=== PATIENT | male | born 1975 | race Caucasian/White ===

== ENCOUNTER 2017-05-05 00:21 | Emergency (ER) | payer SELFPAY ==
[2017-05-05] MEDS ORDERED: PROVENTIL 2.5 MG/3 ML NEB IH ONE ×2 (00:35→00:43)
--- NOTE | 2017-05-05 00:42 | ERPHSYRPT ---
- History of Present Illness Time Seen by Provider: 05/05/17 00:24 Source: patient Exam Limitations: no limitations Physician History: FOR THE PAST 4 DAYS PT HAS HAD A WORSENING CHRONIC NON-PRODUCTIVE COUGH; FOR THE PAST 3 DAYS SUBJECTIVE FEVER, NASAL CONGESTION, HEADACHE, DIAPHORESIS AND CHILLS. PT ALSO C/O A RASH ON THE BACK FOR THE PAST 5 YEARS. Allergies/Adverse Reactions: hydrocodone Allergy (Verified 05/05/17 00:37) Swelling cephalexin [From Keflex] Adverse Reaction (Verified 05/05/17 00:37) Nausea and Vomiting Hx Tetanus, Diphtheria Vaccination/Date Given: Yes Hx Influenza Vaccination/Date Given: No Hx Pneumococcal Vaccination/Date Given: No - Review of Systems Constitutional: Fever, Chills Ears, Nose, & Throat: Nose Congestion Respiratory: Cough Skin: Rash Neurological: Headache Endocrine: Excessive Sweating All Other Systems: Reviewed and Negative - Past Medical History Pertinent Past Medical History: No - Past Surgical History Past Surgical History: No Musculoskeletal: Orthopedic Surgery - Social History Smoking Status: Current every day smoker How long have you smoked: 25 Exposure to second hand smoke: Yes Drug Use: none Patient Lives Alone: No - Nursing Vital Signs Nursing Vital Signs: Initial Vital Signs Temperature 99.2 F 05/05/17 00:24 Pulse Rate 81 05/05/17 00:24 Respiratory Rate 20 05/05/17 00:24 Blood Pressure 131/78 05/05/17 00:24 O2 Sat by Pulse Oximetry 94 L 05/05/17 00:24 Pain Scale Pain Intensity 0 - Physical Exam General Appearance: alert Eye Exam: PERRL/EOMI Ears, Nose, Throat Exam: moist mucous membranes, pharyngeal erythema Neck Exam: normal inspection Respiratory Exam: wheezing (MILD EXPIRATORY WHEEZING) Cardiovascular Exam: normal heart sounds Gastrointestinal/Abdomen Exam: soft, normal bowel sounds Back Exam: normal range of motion Extremity Exam: normal inspection, No pedal edema Neurologic Exam: alert, cooperative Skin Exam: rash (SCATTERED ERYTHEMATOUS MACULOPAPULAR RASH SOME WITH CENTRAL CLEARING WITH RAISED BORDERS OVER MID & LOWER BACK.) - Course Nursing assessment & vital signs reviewed: Yes - Radiology Exams Chest X-ray Interpretation: Interpreted by me, No Pneumonia Ordered Tests: Active Orders 24 hr Category Date Time Status CHEST 2 VIEWS (PA AND LAT) Stat Exams 05/05/17 00:36 Ordered Respiratory Nebulizer STAT RT 05/05/17 00:36 Completed Medication Summary Discontinued Medications Generic Name Dose Route Start Last Admin Trade Name José Miguel PRN Reason Stop Dose Admin Albuterol Sulfate 2.5 mg 05/05/17 00:35 05/05/17 00:44 Proventil 2.5 Mg/3 Ml Neb IH 05/05/17 00:36 2.5 mg STAT ONE Administration Albuterol Sulfate Confirm 05/05/17 00:43 Proventil 2.5 Mg/3 Ml Neb Administered 05/05/17 00:44 Dose 2.5 mg IH .STK-MED ONE - Departure Time of Disposition: :09 Departure Disposition: Home Clinical Impression: BRONCHITIS, PHARYNGITIS, TINEA CORPORIS Condition: Stable Critical Care Time: No Referrals: BRUNILDA HILLMAN [Primary Care Provider] - Instructions: Bronchitis Additional Instructions: FOLLOW UP WITH PRIVATE DOCTOR TOMORROW. Prescriptions: Amox Tr/Potass Clav. 875 mg [Augmentin 875-125 Tablet] 875 mg PO BID #20 tablet Benzonatate [Tessalon Perle] 100 mg PO TID #30 capsule Clotrimazole/Betamet Diprop [Lotrisone Cream] 1 gm TP BID #1 tube
[2017-05-05] MEDS ORDERED: Augmentin 875-125 Tablet PO ONE (01:10)
[2017-05-05] MEDS ORDERED: Augmentin 875-125 Tablet ONE (01:13)
[2017-05-05] MEDS ORDERED: Tessalon Perles 100 MG PO PRN (01:15)
[2017-05-05] MEDS ORDERED: Tessalon Perles 100 MG PO ONE (01:32)
[2017-05-05 01:58] VITALS: BP 135/80; PULSE 76; O2SAT 96
--- NOTE | 2017-05-05 09:15 | XRAY ---
Indication: Cough, short of breath, and fever. Comparison: January 09, 2015. PA/lateral chest remains clear again with a few calcified granulomas. Heart is not enlarged. Bony thorax intact. Impression: Stable nonacute chest with chronic feature.
== END 2017-05-05 01:59 | disposition home or self-care (01) ==
LOC: ED 00:21
DX: J40 Bronchitis, not specified as acute or chronic (principal); J02.9 Acute pharyngitis, unspecified; B35.4 Tinea corporis
CPT/HCPCS: 36000; 71020; 94640; 99284; A9270-GY

== ENCOUNTER 2023-08-01 10:53 | Emergency (ER) | payer BC ==
[2023-08-01 11:03] VITALS: BP 161/91; PULSE 81; RESP 18; TEMP 98.4
[2023-08-01] MEDS ORDERED: TORAdol 30 mg Injection IM ONE (11:03)
[2023-08-01] MEDS ORDERED: Norflex 60 MG/2 ML IM ONE (11:04)
--- NOTE | 2023-08-01 11:08 | ERPHSYRPT ---
- History of Present Illness Source: patient Exam Limitations: no limitations Physician History: 48 years old male with no past medical history presented to the emergency room complaining of right shoulder pain since Wednesday, 3 days from today. The patient states that he was holding an electric screwdriver with his left hand and when he leaned down while supporting on his right upper hand on the ground , he felt the pain in his right shoulder. It is very painful, rating it 8 out of 10 especially with movements. He took hydrocodone without much relief. He is denying any other injuries. Allergies/Adverse Reactions: hydrocodone Allergy (Verified 08/01/23 10:59) Swelling pt took one on 07/31/23 and did fine cephalexin [From Keflex] Adverse Reaction (Verified 05/05/17 00:37) Nausea and Vomiting Hx Tetanus, Diphtheria Vaccination/Date Given: Yes Hx Influenza Vaccination/Date Given: No Hx Pneumococcal Vaccination/Date Given: No - Review of Systems Constitutional: No Fever, No Chills Eyes: No Symptoms Ears, Nose, & Throat: No Symptoms Respiratory: No Cough, No Dyspnea Cardiac: No Chest Pain, No Edema, No Syncope Abdominal/Gastrointestinal: No Abdominal Pain, No Nausea, No Vomiting, No Diarrhea Genitourinary Symptoms: No Dysuria Musculoskeletal: Other (Right shoulder pain for 3 days), No Back Pain, No Neck Pain Skin: No Rash Neurological: No Dizziness, No Focal Weakness, No Sensory Changes Psychological: No Symptoms Endocrine: No Symptoms All Other Systems: Reviewed and Negative - Past Medical History Pertinent Past Medical History: No - Past Surgical History Past Surgical History: Yes Musculoskeletal: Orthopedic Surgery Other Surgical History: finger - Social History Smoking Status: Current every day smoker How long have you smoked: 25 Exposure to second hand smoke: Yes Drug Use: none Patient Lives Alone: No - Nursing Vital Signs Nursing Vital Signs: Initial Vital Signs Temperature 98.4 F 08/01/23 11:02 Pulse Rate 81 08/01/23 11:02 Respiratory Rate 18 08/01/23 11:02 Blood Pressure 161/91 08/01/23 11:02 Pain Scale Pain Intensity 8 - Physical Exam General Appearance: no apparent distress, alert Eyes, Ears, Nose, Throat Exam: moist mucous membranes Neck Exam: non-tender, supple Cardiovascular/Respiratory Exam: chest non-tender, normal breath sounds, regular rate/rhythm, no respiratory distress Abdominal Exam: non-tender, No guarding Back Exam: normal inspection, No vertebral tenderness Shoulder Exam: normal inspection, no evidence of injury, limited ROM, pain (Patient has tenderness over the right AC joint, supraspinatus muscle.), soft tissue tenderness, No deformity, No swelling Elbow/Forearm Exam: normal inspection, non-tender Wrist Exam: normal inspection, non-tender, normal ROM Hand Exam: normal inspection, non-tender, normal ROM Neuro/Tendon Exam: normal sensation, normal motor functions Mental Status Exam: alert, oriented x 3, cooperative Skin Exam: normal color, warm, dry - Course Nursing assessment & vital signs reviewed: Yes - Radiology Exams Shoulder X-ray Interpretation: Interpreted by me, Reviewed by me, Negative Ordered Tests: Active Orders 24 hr Category Date Time Status Sling Application STAT Care 08/01/23 12:09 Completed SHOULDER Stat Exams 08/01/23 11:18 Completed Medication Summary Discontinued Medications Generic Name Dose Route Start Last Admin Trade Name Freq PRN Reason Stop Dose Admin Ketorolac Tromethamine 60 mg 08/01/23 11:03 08/01/23 11:15 Ketorolac Tromethamine 30 Mg/Ml Inj IM 08/01/23 11:04 60 mg STAT ONE Administration Ketorolac Tromethamine Confirm 08/01/23 11:09 Ketorolac Tromethamine 30 Mg/Ml Inj Administered 08/01/23 11:10 Dose 60 mg .ROUTE .STK-MED ONE Orphenadrine Citrate 60 mg 08/01/23 11:04 08/01/23 11:15 Orphenadrine Citrate 60 Mg/2 Ml Vial IM 08/01/23 11:05 60 mg STAT ONE Administration Orphenadrine Citrate Confirm 08/01/23 11:09 Orphenadrine Citrate 60 Mg/2 Ml Vial Administered 08/01/23 11:10 Dose 60 mg .ROUTE .STK-MED ONE - Progress Progress: improved Progress Note: 08/01/23 11:13 48 years old male presenting to to the emergency room complaining of right shoulder pain since last Wednesday, 3 days from today. The patient injured his right shoulder while leaning downward supporting his right upper extremity. He has tenderness over his right AC joint, right supraspinatus. Decreased range of motion of the right shoulder secondary to pain. Differential diagnosis: Shoulder dislocation Shoulder subluxation Rotator cuff injury Shoulder sprain Shoulder fracture. Emergency room course and medical decision making. For the pain the patient be given Toradol 60 mg IM, Norflex 60 IM X-ray of the right shoulder. 08/01/23 12:04 The patient is feeling better stating that his pain is down from 8 out of 10 to 4 out of 10. X-ray of the right shoulder is negative for any fracture or dislocation. The patient will be discharged home on naproxen 500 mg twice a day Norflex 100 milligrams twice a day. Sling to the right shoulder He has hydrocodone tablets that he can take as needed. Follow-up with his family physician in 2 to 3 days. The patient may need an MRI on an outpatient basis. 08/01/23 12:12 - Departure Departure Disposition: Home Clinical Impression: Sprain of shoulder, right Condition: Stable Critical Care Time: No Referrals: BRUNILDA NORRIS [ACTIVE STAFF] - Follow up/PCP as directed Instructions: Shoulder Tendinopathy (DC), Shoulder Sprain (DC) Prescriptions: Naproxen 500 mg [Naprosyn 500 MG] 500 mg PO BID #30 tablet Orphenadrine Citrate 100 mg [Norflex 100 MG Tablet] 100 mg PO BID #14 tab
[2023-08-01] MEDS ORDERED: TORAdol 30 mg Injection ONE (11:09)
[2023-08-01] MEDS ORDERED: Norflex 60 MG/2 ML ONE (11:09)
--- NOTE | 2023-08-01 21:11 | XRAY ---
Indication: Pain. Comparison: None 3 view right shoulder demonstrates mild AC degenerative changes, mild double curvature cervicothoracic scoliosis, and tiny right midlung calcified granuloma. No other bony, articular, or soft tissue abnormalities.
== END 2023-08-01 12:27 | disposition home or self-care (01) ==
LOC: ED 10:53
DX: S43.401A Unspecified sprain of right shoulder joint, initial encounter (principal); X50.0XXA Overexertion from strenuous movement or load, initial encounter; Y93.H3 Activity, building and construction; Z79.891 Long term (current) use of opiate analgesic; Z72.0 Tobacco use
CPT/HCPCS: 73030; 96372; 99283; J1885; J2360

== ENCOUNTER 2024-03-18 00:38 | Emergency (ER) | payer BC ==
--- NOTE | 2024-03-18 00:50 | ERPHSYRPT ---
- History of Present Illness Time Seen by Provider: 03/18/24 00:45 Historian: patient Exam Limitations: no limitations Physician History: This is a 49-year-old white male patient who presents to the emergency room with chest pain of the entire anterior chest that began approximately 20 to 30 minutes prior to arrival. Patient is a daily smoker of cigarettes. He denies shortness of breath. His chest feels as though he got hit by a truck Timing/Duration: today Activities at Onset: none Location: other (Neurolyse anterior chest) Chest Pain Radiation: no radiation Severity of Pain-Max: moderate Severity of Pain-Current: moderate Modifying Factors: Improves With: nothing Associated Symptoms: diaphoresis Prior Chest Pain/Cardiac Workup: no prior chest pain, no prior cardiac workup Nitro Today/Relief: no nitro taken today Aspirin Treatment Today: no aspirin today, 81 mg x 4 Allergies/Adverse Reactions: hydrocodone Allergy (Verified 03/18/24 00:39) Swelling pt took one on 07/31/23 and did fine cephalexin [From Keflex] Adverse Reaction (Verified 03/18/24 00:39) Nausea and Vomiting Home Medications: No Reportable Medications [No Reported Medications] 03/18/24 [History] Hx Tetanus, Diphtheria Vaccination/Date Given: Yes Hx Influenza Vaccination/Date Given: No Hx Pneumococcal Vaccination/Date Given: No Travel Risk - International Travel Have you traveled outside of the country in past 3 weeks: No - Emerging Infectious Disease Are you exhibiting symptoms associated with any current EIDs: No - Review of Systems Constitutional: No Symptoms Eyes: No Symptoms Ears, Nose, & Throat: No Symptoms Respiratory: No Symptoms Cardiac: Chest Pain Abdominal/Gastrointestinal: No Symptoms Genitourinary Symptoms: No Symptoms Musculoskeletal: No Symptoms Skin: No Symptoms Neurological: No Symptoms Psychological: No Symptoms Endocrine: No Symptoms Hematologic/Lymphatic: No Symptoms Immunological/Allergic: No Symptoms All Other Systems: Reviewed and Negative - Past Medical History Pertinent Past Medical History: No - Past Surgical History Past Surgical History: Yes Musculoskeletal: Orthopedic Surgery Other Surgical History: finger - Social History Smoking Status: Current every day smoker How long have you smoked: 25 Exposure to second hand smoke: Yes Drug Use: none Patient Lives Alone: No - Physical Exam General Appearance: mild distress (Moderate to moderate), alert, anxiety Eye Exam: PERRL/EOMI, eyes nml inspection Ears, Nose, Throat Exam: normal ENT inspection, moist mucous membranes Neck Exam: normal inspection, non-tender, supple, full range of motion Respiratory Exam: normal breath sounds, chest tenderness, lungs clear, airway intact, No respiratory distress Cardiovascular Exam: regular rate/rhythm, normal heart sounds, normal peripheral pulses Gastrointestinal/Abdomen Exam: soft, normal bowel sounds, No tenderness Rectal Exam: not done Back Exam: normal inspection, normal range of motion, No CVA tenderness, No vertebral tenderness Extremity Exam: normal inspection, normal range of motion, pelvis stable Neurologic Exam: alert, oriented x 3, cooperative, crm consultant II-XII nml as tested, nml cerebellar function, nml station & gait, sensation nml Skin Exam: diaphoresis Lymphatic Exam: No adenopathy SpO2 Interpretation: normal O2 Delivery: Room Air - Course Nursing assessment & vital signs reviewed: Yes EKG Interpreted by Me: RATE (59), Sinus Rhythm, NORMAL AXIS, NORMAL INTERVALS, NORMAL QRS, Other (STEMI inferior leads II 3 and aVF) Ordered Tests: Active Orders 24 hr Category Date Time Status Front End Specialist STAT Care 03/18/24 00:47 Active EKG-ER Only STAT Care 03/18/24 00:46 Active IV Insertion STAT Care 03/18/24 00:46 Active Pulse Oximetry (ED) STAT Care 03/18/24 00:46 Active CBC W DIFF Stat Lab 03/18/24 00:46 Ordered CMP Stat Lab 03/18/24 00:46 Ordered PROTIME WITH INR Stat Lab 03/18/24 00:46 Ordered PTT Stat Lab 03/18/24 00:46 Ordered TROPONIN Q4H Lab 03/18/24 01:00 Ordered TROPONIN Q4H Lab 03/18/24 05:00 Ordered TROPONIN Q4H Lab 03/18/24 09:00 Ordered Medication Summary Generic Name Dose Route Start Last Admin Trade Name Freq PRN Reason Stop Dose Admin Sodium Chloride 1,000 mls @ 100 mls/hr 03/18/24 01:00 Sodium Chloride 0.9% 1000 Ml IV 04/17/24 00:59 .Q10H CHRISTIANO Nitroglycerin/Dextrose 250 mls @ 1.5 mls/hr 03/18/24 00:46 Ntg 0.2mg/Ml In D5w Glass IV 04/17/24 00:45 .Q24H PRN CHEST PAIN Protocol 5 MCG/MIN Discontinued Medications Generic Name Dose Route Start Last Admin Trade Name José Miguel PRN Reason Stop Dose Admin Aspirin 324 mg 03/18/24 00:46 Aspirin 81 Mg Tab.Chew PO 03/18/24 00:47 STAT ONE Heparin Sodium (Beef Lung) 5,000 unit 03/18/24 00:48 Heparin 5000 Units/0.5 Ml 5,000 Unit/0.5 Ml Syr IV 03/18/24 00:49 STAT STA Ondansetron HCl 4 mg 03/18/24 00:49 Ondansetron Hcl 4 Mg/2 Ml Vial IV 03/18/24 00:50 STAT ONE - Progress Progress: re-examined, unchanged Air Movement: good Progress Note: 03/18/24 01:02 My medical decision making and the assignment of high complexity to this patient's medical issue today is based on review of the patient's past medical history, review patient medication list, review patient drug allergy list, review of the patient's history of present illness and physical findings on examination. The workup in this patient includes 325 mg orally of baby aspirin, twelve-lead EKG, troponin level, CBC, CMP, magnesium level, 5000 units intravenous heparin bolus, nitroglycerin drip, 4 mg of intravenous Zofran and 2 mg of intravenous morphine. The patient states that hydrocodone does not give him a rash but he breaks out in a sweat and has nausea. Blood Culture(s) Obtained: No Antibiotics given: No Counseled pt/family regarding: lab results, diagnosis Medical Desision Making - Independent Historian Additional History obtained from: Spouse - Diagnostic Testing Diagnostic test were ordered, analyzed, and reviewed by me: Yes - Risk of complications The pt has a high risk of morbidity or mortality based on: Decision regarding hospitilization or escalation of hosp level of care - Departure Departure Disposition: Transfer Clinical Impression: STEMI (ST elevation myocardial infarction) Condition: Serious Critical Care Time: Yes Critical Care Time(excluding separately billable procedures): Critical 30-74 mins (30)
[2024-03-18 00:55] VITALS: TEMP 97.8
[2024-03-18] MEDS ORDERED: HEPARIN 5000 UNITS/0.5 ML (HIGH RISK MED) ONE (00:57)
[2024-03-18] MEDS ORDERED: Zofran 4 MG/2 ML VIAL ONE (00:57)
[2024-03-18] MEDS ORDERED: BABY ASPIRIN 81 MG CHEW ONE (00:57)
[2024-03-18] MEDS ORDERED: Sodium Chloride 0.9% 1000 ML 1,000 ML ONE (00:57)
[2024-03-18] MEDS ORDERED: Ntg 0.2MG/Ml in D5W GLASS*** 250 ML IV ONE (00:58)
[2024-03-18] MEDS: BABY ASPIRIN 81 MG CHEW PO ONE (00:58)
[2024-03-18] MEDS: Zofran 4 MG/2 ML VIAL IV ONE (00:59)
[2024-03-18] MEDS: Sodium Chloride 0.9% 1000 ML 1,000 ML IV SCH (00:59)
[2024-03-18] MEDS: Ntg 0.2MG/Ml in D5W GLASS*** 250 ML IV PRN (00:59)
[2024-03-18] MEDS: HEPARIN 5000 UNITS/0.5 ML (HIGH RISK MED) IV STA (00:59)
[2024-03-18 01:04] LABS: Absolute Neutrophil Ct (ANC) 6.06 x10^3/uL (1.78-5.38); BASOPHIL % 0.7 % (0.2-1.2); Basophil (Absolute #) 0.08 x10^3/uL (0.01-0.08); Eosinophil % 1.8 % (0.8-7.0); Eosinophil (Absolute #) 0.21 x10^3/uL (0.04-0.54); Hematocrit 43.2 % (40.1-51.0); Hemoglobin 14.7 g/dL (13.7-17.5); IMMATURE GRAN # 0.05 x10^3u/L (0.001-0.031); IMMATURE GRAN % 0.4 % (0.001-0.429); Lymphocyte (Absolute #) 4.37 x10^3/uL (1.32-3.57); Mean Cell Volume 88.9 fL (79.0-92.2); Mean Corpuscular Hemoglobin 30.2 pg (25.7-32.2); Mean Platelet Volume 9.9 fL (9.4-12.4); Monocyte (Absolute #) 0.73 x10^3/uL (0.30-0.82); Monocytes % 6.3 % (5.3-12.2); Neutrophil % 52.8 % (34.0-67.9); Platelet Count 269 x10^3/uL (163-337); Red Blood Count 4.86 x10^6/uL (4.63-6.08); Red Cell Distribution Width 12.5 % (11.6-14.4); White Blood Count 11.5 x10^3/uL (4.23-9.07)
[2024-03-18] MEDS ORDERED: MORPHINE SULFATE 2 MG INJ ONE (01:11)
[2024-03-18] MEDS: MORPHINE SULFATE 2 MG INJ IV ONE (01:12)
[2024-03-18 01:15] VITALS: RESP 15
[2024-03-18 01:16] LABS: ALBUMIN 4.8 g/dL (3.5-5.0); ANION GAP 13.5 MEQ/L (5-15); BILIRUBIN,TOTAL 0.4 mg/dL (0.2-1.3); Calcium 10.1 mg/dL (8.4-10.2); Creatinine 1 1.38 mg/dL (0.66-1.25); EST GLOMERULAR FILTRATION RATE 61.9 ML/MIN; MAGNESIUM 2.2 mg/dL (1.6-2.3); Potassium 3.5 mmol/L (3.5-5.1); Total Protein 8.2 g/dL (6.3-8.2)
[2024-03-18 01:17] LABS: INR 0.89 (0.8-3.0); PROTIME 9.8 SECONDS (9.4-12.5); PTT 25.1 SECONDS (25.1-36.5)
[2024-03-18 01:31] VITALS: BP 161/106; PULSE 68; O2SAT 99
== END 2024-03-18 01:21 | disposition short-term general hospital (02) ==
LOC: ED 00:38
DX: I21.3 ST elevation (STEMI) myocardial infarction of unspecified site (principal); R07.9 Chest pain, unspecified; Z72.0 Tobacco use
CPT/HCPCS: 36000; 36415; 80053; 83735; 84484; 85025; 85610; 85730; 93005; 93041; 94760; 96374; 96375; 99285; 99291; J1644; J2270; J2405; A9270-GY

== ENCOUNTER 2024-08-03 19:12 | Emergency (ER) | payer BC ==
--- NOTE | 2024-08-03 19:27 | ERPHSYRPT ---
- History of Present Illness Time Seen by Provider: 08/03/24 19:27 Source: patient Exam Limitations: no limitations Physician History: This is an overweight 49-year-old white male patient who was getting ready for duck hunting and while he was walking down decline he got to the end and his foot slipped and he fell onto his left shoulder. This occurred this morning. Patient arrives accompanied by his spouse. He has left shoulder pain with decreased range of motion. He has no other complaints of injury. He wants to avoid codeine-based medication. Occurred: this morning Method of Injury: fell Quality: aching Severity of Pain-Max: moderate Severity of Pain-Current: moderate Extremities Pain Location: shoulder: left Modifying Factors: Improves With: movement (Worsens) Associated Symptoms: none Allergies/Adverse Reactions: hydrocodone Allergy (Verified 08/03/24 19:20) Swelling pt took one on 07/31/23 and did fine cephalexin [From Keflex] Adverse Reaction (Verified 08/03/24 19:20) Nausea and Vomiting Home Medications: Aspirin [Adult Low Dose Aspirin EC] 81 mg PO DAILY 08/03/24 [History] Atorvastatin Calcium 80 mg PO HS 08/03/24 [History] Ezetimibe [Zetia] 10 mg PO HS 08/03/24 [History] Famotidine [Pepcid] 20 mg PO BID 08/03/24 [History] Ranolazine [Ranolazine ER] 500 mg PO BID 08/03/24 [History] Ticagrelor [Brilinta] 90 mg PO BID 08/03/24 [History] lisinopriL [Zestril] 2.5 mg PO DAILY 08/03/24 [History] Hx Tetanus, Diphtheria Vaccination/Date Given: Yes Hx Influenza Vaccination/Date Given: No Hx Pneumococcal Vaccination/Date Given: No Travel Risk - International Travel Have you traveled outside of the country in past 3 weeks: No - Emerging Infectious Disease Are you exhibiting symptoms associated with any current EIDs: No - Review of Systems Constitutional: No Symptoms Eyes: No Symptoms Ears, Nose, & Throat: No Symptoms Respiratory: No Symptoms Cardiac: No Symptoms Abdominal/Gastrointestinal: No Symptoms Genitourinary Symptoms: No Symptoms Musculoskeletal: Injury (Left shoulder), Other (Left shoulder) Skin: No Symptoms Neurological: No Symptoms Psychological: No Symptoms Endocrine: No Symptoms Hematologic/Lymphatic: No Symptoms Immunological/Allergic: No Symptoms All Other Systems: Reviewed and Negative - Past Medical History Pertinent Past Medical History: No - Past Surgical History Past Surgical History: Yes Musculoskeletal: Orthopedic Surgery Other Surgical History: finger - Social History Smoking Status: Current every day smoker How long have you smoked: 25 Exposure to second hand smoke: Yes Drug Use: none Patient Lives Alone: No - Social Determinants of Health Will the patient participate in the screening: Declined to provide - Nursing Vital Signs Nursing Vital Signs: Initial Vital Signs Temperature 98.1 F 08/03/24 19:20 Pulse Rate 82 08/03/24 19:20 Respiratory Rate 20 08/03/24 19:20 Blood Pressure 143/79 08/03/24 19:20 O2 Sat by Pulse Oximetry 98 08/03/24 19:20 Pain Scale Pain Intensity 9 - Physical Exam General Appearance: no apparent distress, alert Eyes, Ears, Nose, Throat Exam: normal ENT inspection, moist mucous membranes Neck Exam: normal inspection, non-tender, supple, full range of motion Cardiovascular/Respiratory Exam: chest non-tender, no respiratory distress Abdominal Exam: non-tender Back Exam: normal inspection, normal range of motion, No CVA tenderness, No vertebral tenderness Shoulder Exam: normal inspection (Left shoulder), no evidence of injury, soft tissue tenderness (Left shoulder), No deformity, No swelling (Left shoulder) Elbow/Forearm Exam: normal inspection, non-tender, no evidence of injury, normal ROM Wrist Exam: normal inspection, non-tender, no evidence of injury, normal ROM Hand Exam: normal inspection, non-tender, no evidence of injury, normal ROM Neuro/Tendon Exam: normal sensation, normal motor functions, normal tendon functions, no evidence tendon injury Mental Status Exam: alert, oriented x 3, cooperative Skin Exam: normal color, warm, dry SpO2 Interpretation: normal O2 Delivery: Room Air - Course Nursing assessment & vital signs reviewed: Yes Ordered Tests: Active Orders 24 hr Category Date Time Status Sling Application STAT Care 08/03/24 20:26 Ordered SHOULDER Stat Exams 08/03/24 19:37 Taken Medication Summary Discontinued Medications Generic Name Dose Route Start Last Admin Trade Name Freq PRN Reason Stop Dose Admin Naproxen 500 mg 08/03/24 20:27 Naproxen 500 Mg Tablet PO 08/03/24 20:28 STAT ONE Orphenadrine Citrate 100 mg 08/03/24 20:27 Orphenadrine Citrate 100 Mg Er Tab PO 08/03/24 20:28 STAT ONE - Progress Progress: improved, pain not gone completely Progress Note: 08/03/24 20:31 My medical decision making and the assignment of low complexity to this patient's medical issue today is based on review of the patient's past medical history, review of the patient's medication list, reviewed patient drug allergy list, history present of some physical findings on examination. The workup in this patient includes x-ray of the patient's left shoulder. Differential diagnosis includes but is not limited to fracture/dislocation left shoulder, rotator cuff injury 08/03/24 20:32 I interpreted the patient's preliminary left shoulder x-ray report. I do not se e an acute fracture or dislocation. Counseled pt/family regarding: diagnosis, need for follow-up, rad results Medical Desision Making - Independent Historian Additional History obtained from: Spouse - Diagnostic Testing Diagnostic test were ordered, analyzed, and reviewed by me: Yes Radiological Interpretation: Interpreted by me - Risk of complications The pt has a mod risk of morbidity or mortality based on: Need for prescription drug management - Departure Departure Disposition: Home Clinical Impression: Injury of left shoulder Condition: Stable Critical Care Time: No Referrals: DOCTOR,NO FAMILY [NON-STAFF PHY W/O PRIVILEGES] - Follow up/PCP as directed Additional Instructions: Ice pack to tender area 3-4 times a day for the next 3 to 4 days. Take your medication as prescribed. May add Tylenol 650 mg orally 4 times a day while awake. Follow-up with your primary care provider, by phone, on 08/07/2024 or the [facility] orthopedic clinic on 08/07/2024, at 8 or 9 AM for further evaluation and management. The orthopedic clinic is a walk-in clinic and you do not need to have an appointment to be seen. Prescriptions: Orphenadrine Citrate 100 mg [Norflex 100 MG Tablet] 100 mg PO BID #10 tab
[2024-08-03 19:30] VITALS: RESP 20; TEMP 98.1
[2024-08-03 20:18] VITALS: BP 135/82; PULSE 77; O2SAT 99
[2024-08-03] MEDS ORDERED: Norflex 100 MG Tablet PO ONE (20:30)
[2024-08-03] MEDS: Naprosyn 500 MG PO ONE (20:34)
[2024-08-03] MEDS: Norflex 100 MG Tablet PO ONE (20:34)
--- NOTE | 2024-08-04 13:21 | XRAY ---
Indication: Pain following fall. 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 No other bony, articular, or soft tissue abnormalities.
== END 2024-08-03 20:43 | disposition home or self-care (01) ==
LOC: ED 19:12
DX: S49.92XA Unspecified injury of left shoulder and upper arm, initial encounter (principal); W01.0XXA Fall on same level from slipping, tripping and stumbling without subsequent striking against object, initial encounter; Z79.02 Long term (current) use of antithrombotics/antiplatelets; Z79.899 Other long term (current) drug therapy; Z72.0 Tobacco use
CPT/HCPCS: 73030; 99283; A9270-GY

== ENCOUNTER 2025-04-02 19:50 | Observation (INO) | payer BC ==
--- NOTE | 2025-04-02 20:03 | ERPHSYRPT ---
- History of Present Illness Time Seen by Provider: 04/02/25 19:59 Exam Limitations: no limitations Physician History: 50-year-old male history of [place] CABG x 4 vessels October 31 presents to our ED for evaluation of chest pain for 1 week. No associated nausea vomiting or diaphoresis. Patient followed up with his entry level recruiter Dr. Mcginnis. Outpatient labs were completed. Patient reports the labs were normal no further follow-up. Please patient reports that his chest pain is gotten progressively worse. Chest pain radiating to his back. Patient took 325 mg of aspirin and 75 mg of Plavix today. No nitroglycerin. at bedside. They voiced no other complaints or concerns at this time. Portions of this note were created with voice recognition technology. There may be grammatical, spelling, punctuation or sound alike errors Timing/Duration: week(s) (1 week) Activities at Onset: none Quality: aching Location: substernal Chest Pain Radiation: back Severity of Pain-Max: moderate Severity of Pain-Current: mild Modifying Factors: Improves With: nothing Associated Symptoms: denies symptoms Nitro Today/Relief: no nitro taken today Aspirin Treatment Today: 325 mg x 1 Allergies/Adverse Reactions: hydrocodone Allergy (Verified 08/03/24 19:20) Swelling pt took one on 07/31/23 and did fine cephalexin [From Keflex] Adverse Reaction (Verified 08/03/24 19:20) Nausea and Vomiting doxycycline Adverse Reaction (Verified 04/02/25 20:11) Muscle Aches Home Medications: Aspirin [Adult Low Dose Aspirin EC] 325 mg PO DAILY 08/03/24 [History] Atorvastatin Calcium 80 mg PO HS 08/03/24 [History] Famotidine [Pepcid] 20 mg PO BID 08/03/24 [History] Ticagrelor [Brilinta] 90 mg PO BID 08/03/24 [History] Clopidogrel Bisulfate [Clopidogrel] 75 mg PO DAILY 04/02/25 [History] Hx Tetanus, Diphtheria Vaccination/Date Given: Yes Hx Influenza Vaccination/Date Given: No Hx Pneumococcal Vaccination/Date Given: No Travel Risk - Emerging Infectious Disease Are you exhibiting symptoms associated with any current EIDs: No - Review of Systems Constitutional: No Symptoms, No Fever, No Chills Eyes: No Symptoms Ears, Nose, & Throat: No Symptoms Respiratory: No Symptoms, No Cough, No Dyspnea Cardiac: No Symptoms, No Chest Pain, No Edema, No Syncope Abdominal/Gastrointestinal: No Symptoms, No Abdominal Pain, No Nausea, No Vomiting, No Diarrhea Genitourinary Symptoms: No Symptoms, No Dysuria Musculoskeletal: No Symptoms, No Back Pain, No Neck Pain Skin: No Symptoms, No Rash Neurological: No Symptoms, No Dizziness, No Focal Weakness, No Sensory Changes Psychological: No Symptoms Endocrine: No Symptoms Hematologic/Lymphatic: No Symptoms Immunological/Allergic: No Symptoms All Other Systems: Reviewed and Negative - Past Medical History Pertinent Past Medical History: No - Past Surgical History Past Surgical History: Yes Musculoskeletal: Orthopedic Surgery Other Surgical History: finger - Social History Smoking Status: Current every day smoker How long have you smoked: 25 Exposure to second hand smoke: Yes Drug Use: none Patient Lives Alone: No - Social Determinants of Health Will the patient participate in the screening: Declined to provide - Nursing Vital Signs Nursing Vital Signs: Initial Vital Signs Pulse Rate 88 04/02/25 20:00 Respiratory Rate 24 04/02/25 20:00 Blood Pressure 133/81 04/02/25 20:00 O2 Sat by Pulse Oximetry 97 04/02/25 20:00 Pain Scale Pain Intensity 10 - Physical Exam General Appearance: no apparent distress, alert Eye Exam: PERRL/EOMI, eyes nml inspection Ears, Nose, Throat Exam: normal ENT inspection, moist mucous membranes Neck Exam: normal inspection, non-tender, supple, full range of motion Respiratory Exam: normal breath sounds, lungs clear, airway intact, No respiratory distress Cardiovascular Exam: regular rate/rhythm, normal heart sounds Gastrointestinal/Abdomen Exam: soft, No tenderness, No mass Back Exam: normal inspection, No CVA tenderness, No vertebral tenderness Extremity Exam: normal inspection, normal range of motion Neurologic Exam: alert, oriented x 3, cooperative, normal mood/affect, sensation nml, No motor deficits Skin Exam: normal color, warm, dry Lymphatic Exam: No adenopathy SpO2 Interpretation: normal O2 Delivery: Room Air - Course Nursing assessment & vital signs reviewed: Yes EKG Interpreted by Me: RATE (90), Sinus Rhythm, NORMAL AXIS, NORMAL INTERVALS, NORMAL QRS - Radiology Exams Chest X-ray Interpretation: Interpreted by me (Evidence of CABG. No acute findings.) - CT Exams Chest CT Interpretation: Tele-radiologist Report (No PE. Borderline cardiomegaly, pericardial effusion. Evidence of CABG no acute findings) Ordered Tests: Active Orders 24 hr Category Date Time Status Civil Engineering Intern STAT Care 04/02/25 19:58 Active EKG-ER Only STAT Care 04/02/25 19:57 Active IV Insertion STAT Care 04/02/25 19:57 Active Pulse Oximetry (ED) STAT Care 04/02/25 19:57 Active CHEST 1 VIEW (PORTABLE) Stat Exams 04/02/25 20:46 Taken CHEST WITH CONTRAST [CT] Stat Exams 04/02/25 21:27 Taken CBC W DIFF Stat Lab 04/02/25 20:00 Completed CMP Stat Lab 04/02/25 20:00 Completed D-DIMER QUANTITATIVE Stat Lab 04/02/25 20:00 Completed NT PRO BNPII Stat Lab 04/02/25 20:00 Completed TROPONIN Q4H Lab 04/02/25 20:00 Completed TROPONIN Q4H Lab 04/03/25 00:00 Ordered TROPONIN Q4H Lab 04/03/25 04:00 Ordered TROPONIN Stat Lab 04/02/25 22:00 Completed Transfer Order Routine Transfer 04/03/25 Ordered Medication Summary Discontinued Medications Generic Name Dose Route Start Last Admin Trade Name Freq PRN Reason Stop Dose Admin Nitroglycerin 1 gm 04/02/25 20:03 04/02/25 20:15 Nitroglycerin 1 Gm Packet TOP 04/02/25 20:04 1 gm STAT ONE Administration Nitroglycerin Confirm 04/02/25 20:15 Nitroglycerin 1 Gm Packet Administered 04/02/25 20:16 Dose 1 gm .ROUTE .STK-MED ONE Lab/Rad Data: Laboratory Result Diagrams 04/02/25 20:00 04/02/25 20:00 Laboratory Results 04/02/25 04/02/25 04/02/25 Range/Units 22:00 20:00 20:00 WBC (4.23-9.07) x10^3/uL RBC (4.63-6.08) x10^6/uL Hgb (13.7-17.5) g/dL Hct (40.1-51.0) % MCV (79.0-92.2) fL MCH (25.7-32.2) pg MCHC (32.3-36.5) g/dL RDW (11.6-14.4) % Plt Count (163-337) x10^3/uL MPV (9.4-12.4) fL Gran % (34.0-67.9) % Immature Gran % (Auto) (0.001-0.429) % Nucleat RBC Rel Count (0.00-0.2) % Eos # (Auto) (0.04-0.54) x10^3/uL Immature Gran # (Auto) (0.001-0.031) x10^3u/L Absolute Lymphs (auto) (1.32-3.57) x10^3/uL Absolute Monos (auto) (0.30-0.82) x10^3/uL Absolute Nucleated RBC (0.00-0.012) x10^3u/L Lymphocytes % (21.8-53.1) % Monocytes % (5.3-12.2) % Eosinophils % (0.8-7.0) % Basophils % (0.2-1.2) % Absolute Granulocytes (1.78-5.38) x10^3/uL Basophils # (0.01-0.08) x10^3/uL D-Dimer 1.08 H* (0.0-0.50) mg/L Sodium (135-145) mmol/L Potassium (3.5-5.1) mmol/L Chloride (98-107) mmol/L Carbon Dioxide (22-30) mmol/L Anion Gap (5-15) MEQ/L BUN (9-20) mg/dL Creatinine (0.66-1.25) mg/dL Estimated GFR ML/MIN Glucose (74-106) mg/dL Calcium (8.4-10.2) mg/dL Total Bilirubin (0.2-1.3) mg/dL AST (17-59) U/L ALT (0-50) U/L Alkaline Phosphatase (38-126) U/L Troponin I < 0.012 < 0.012 (0.000-0.033) ng/mL NT-Pro-B Natriuret Pep 216 (<300) pg/mL Serum Total Protein (6.3-8.2) g/dL Albumin (3.5-5.0) g/dL 04/02/25 04/02/25 Range/Units 20:00 20:00 WBC 10.8 H (4.23-9.07) x10^3/uL RBC 4.57 L (4.63-6.08) x10^6/uL Hgb 13.8 (13.7-17.5) g/dL Hct 40.7 (40.1-51.0) % MCV 89.1 (79.0-92.2) fL MCH 30.2 (25.7-32.2) pg MCHC 33.9 (32.3-36.5) g/dL RDW 14.0 (11.6-14.4) % Plt Count 244 (163-337) x10^3/uL MPV 9.7 (9.4-12.4) fL Gran % 69.0 H (34.0-67.9) % Immature Gran % (Auto) 0.2 (0.001-0.429) % Nucleat RBC Rel Count 0.0 (0.00-0.2) % Eos # (Auto) 0.11 (0.04-0.54) x10^3/uL Immature Gran # (Auto) 0.02 (0.001-0.031) x10^3u/L Absolute Lymphs (auto) 2.46 (1.32-3.57) x10^3/uL Absolute Monos (auto) 0.70 (0.30-0.82) x10^3/uL Absolute Nucleated RBC 0.00 (0.00-0.012) x10^3u/L Lymphocytes % 22.8 (21.8-53.1) % Monocytes % 6.5 (5.3-12.2) % Eosinophils % 1.0 (0.8-7.0) % Basophils % 0.5 (0.2-1.2) % Absolute Granulocytes 7.44 H (1.78-5.38) x10^3/uL Basophils # 0.05 (0.01-0.08) x10^3/uL D-Dimer (0.0-0.50) mg/L Sodium 137 (135-145) mmol/L Potassium 4.3 (3.5-5.1) mmol/L Chloride 102 (98-107) mmol/L Carbon Dioxide 24 (22-30) mmol/L Anion Gap 15.1 H (5-15) MEQ/L BUN 18 (9-20) mg/dL Creatinine 1.17 (0.66-1.25) mg/dL Estimated GFR 75.0 ML/MIN Glucose 123 H (74-106) mg/dL Calcium 9.3 (8.4-10.2) mg/dL Total Bilirubin 0.60 (0.2-1.3) mg/dL AST 23 (17-59) U/L ALT 19 (0-50) U/L Alkaline Phosphatase 156 H (38-126) U/L Troponin I (0.000-0.033) ng/mL NT-Pro-B Natriuret Pep (<300) pg/mL Serum Total Protein 7.1 (6.3-8.2) g/dL Albumin 4.3 (3.5-5.0) g/dL - Progress Progress: improved Air Movement: good Progress Note: Patient is a 50-year-old male history of four-vessel CABG in October 2024 presents to our ED for evaluation of chest pain radiated to his back. Patient states the chest pain is worse with exertion. Patient took 325 of aspirin this morning and 75 of Plavix. We administered Nitropaste which improved patient's pain at rest. However patient states pain worse or reoccurs with exertion. D- dimer positive. CTA chest negative for PE however pericardial effusion observed. No tamponade physiology. Troponin negative x 2. Chest x-ray no acute findings. EKG negative for acute pathology/acute ischemia. In light of patient's cardiovascular risk factors/heart score patient will be admitted for further evaluation and treatment. Plan of care discussed with patient and his who is at the bedside. They agree to admission to [facility] for further evaluation and treatment. Case discussed with hospitalist Dr. Arroyo who accepts admission to observation at 12:04 AM Complexity of problem addressed is moderate acute complicated. No critical care time. Complexity of data reviewed and analyzed as extensive. Test ordered test reviewed results analyzed and correlated clinically with history and physical exam. Risk of complication and or risk of morbidity/mortality of patient management is high. Patient requires hospitalization for further evaluation and treatment. Vital stable. Time spent admit patient approximately 20 minutes. Plan of care established for shared decision making. No social determinants of health present to impede follow-up. Portions of this note were created with voice recognition technology. There may be grammatical, spelling, punctuation or sound alike errors 04/03/25 00:06 Blood Culture(s) Obtained: No Antibiotics given: No Counseled pt/family regarding: lab results, diagnosis, rad results Medical Desision Making - Independent Historian Additional History obtained from: Family - Departure Departure Disposition: Observation Clinical Impression: Pericardial effusion, Chest pain, Acute coronary syndrome Condition: Stable Critical Care Time: No Referrals: POLA SERNA NP [Primary Care Provider, [facility]] - Follow up/PCP as directed
[2025-04-02 20:05] LABS: BASOPHIL % 0.5 % (0.2-1.2); Basophil (Absolute #) 0.05 x10^3/uL (0.01-0.08); Eosinophil (Absolute #) 0.11 x10^3/uL (0.04-0.54); Hematocrit 40.7 % (40.1-51.0); Hemoglobin 13.8 g/dL (13.7-17.5); IMMATURE GRAN # 0.02 x10^3u/L (0.001-0.031); IMMATURE GRAN % 0.2 % (0.001-0.429); Lymphocyte (Absolute #) 2.46 x10^3/uL (1.32-3.57); Mean Corpuscular Hemoglobin 30.2 pg (25.7-32.2); Mean Corpuscular Hgb Concent. 33.9 g/dL (32.3-36.5); Monocyte (Absolute #) 0.70 x10^3/uL (0.30-0.82); NUCLEATED RBC # 0.00 x10^3u/L (0.00-0.012); NUCLEATED RBC % 0.0 % (0.00-0.2); Platelet Count 244 x10^3/uL (163-337); Red Blood Count 4.57 x10^6/uL (4.63-6.08); White Blood Count 10.8 x10^3/uL (4.23-9.07)
[2025-04-02] MEDS: NITRO-BID 2% UD PACKETS TOP ONE (20:15)
[2025-04-02] MEDS ORDERED: NITRO-BID 2% UD PACKETS ONE (20:15)
[2025-04-02 20:42] LABS: Calcium 9.3 mg/dL (8.4-10.2); Carbon Dioxide 24.0 mmol/L (22-30); Creatinine 1 1.17 mg/dL (0.66-1.25); EST GLOMERULAR FILTRATION RATE 75.0 ML/MIN; Glucose 123.0 mg/dL (74-106); Potassium 4.3 mmol/L (3.5-5.1); SGOT/AST 23.0 U/L (17-59); SGPT/ALT 19.0 U/L (0-50); Total Protein 7.1 g/dL (6.3-8.2)
[2025-04-02 20:54] LABS: NT PRO BNPII 216 pg/mL (<300); TROPONIN < 0.012 ng/mL (0.000-0.033)
[2025-04-03] MEDS ORDERED: Zofran 4 MG/2 ML VIAL IV PRN (01:21)
[2025-04-03] MEDS ORDERED: TYLENOL 325 MG PO PRN (01:21)
--- NOTE | 2025-04-03 01:36 | PCM.HP ---
History of Present Illness - Chief Complaint Chief Complaint: ACS, Chest pain Date: 04/02/25 History of Present Illness: is a 50 year old male with a history of [place] CABG x 4 vessels (October 31), HTN and hyperlipidemia, who presented to the ED for evaluation of pain for 1 week. The patient is very insistent that he has not been having chest pain, but he has been having mid back pain. In the ED, there was documentation of chest pain, which the patient denies. He denied nausea, vomiting, or diaphoresis. Patient followed up with his concrete analyst Dr. Mcginnis, and he stated that his outpatient labs were normal, with no recommended follow-up. In the ED, there was a report of hest pain radiating to his back, but he states to me that he is only having back pain. Patient took 325 mg of aspirin and 75 mg of Plavix today. He does not report fever. He states that he has lost about 30 pounds since his CABG. In the ED, troponins were negative and CTA chest ruled out PE. - Review of Systems Constitutional: No Symptoms Eyes: No Symptoms Ears, Nose, & Throat: No Symptoms Respiratory: No Symptoms Cardiac: No Symptoms Abdominal/Gastrointestinal: No Symptoms Genitourinary Symptoms: No Symptoms Musculoskeletal: Back Pain, No Arthralgias, No Neck Pain, No Deformity, No Fall, No Injury, No Joint Redness Skin: No Symptoms Neurological: No Symptoms Psychological: No Symptoms Endocrine: No Symptoms Hematologic/Lymphatic: No Symptoms Immunological/Allergic: No Symptoms All Other Systems: Reviewed and Negative Medications & Allergies Home Medications: Home Medication List Aspirin [Adult Low Dose Aspirin EC] 325 mg PO DAILY 08/03/24 [History Confirmed 04/02/25] Atorvastatin Calcium 80 mg PO HS 08/03/24 [History Confirmed 04/02/25] Famotidine [Pepcid] 20 mg PO BID 08/03/24 [History Confirmed 04/02/25] Ticagrelor [Brilinta] 90 mg PO BID 08/03/24 [History Confirmed 04/02/25] Clopidogrel Bisulfate [Clopidogrel] 75 mg PO DAILY 04/02/25 [History Confirmed 04/02/25] Allergies/Adverse Reactions: Allergies Allergy/AdvReac Type Severity Reaction Status Date / Time hydrocodone Allergy Swelling Verified 08/03/24 19:20 cephalexin [From Keflex] AdvReac Nausea and Verified 08/03/24 19:20 Vomiting doxycycline AdvReac Muscle Verified 04/02/25 20:11 Aches - Past Medical History Past Medical History: No Neurological History: No Pertinent History ENT History: No Pertinent History Cardiac History: High Cholesterol, Hypertension, Myocardial Infarction ([place]) Respiratory History: No Pertinent History Endocrine Medical History: No Pertinent History Musculoskelatal History: No Pertinent History GI Medical History: No Pertinent History History: No Pertinent History Pyscho-Social History: No Pertinent History Male Reproductive Disorders: No Pertinent History - Past Surgical History Past Surgical History: Yes Neuro Surgical History: No Pertinent History Cardiac History: Cardiac Catheterization, Cardiac Stent Respiratory Surgery: No Pertinent History GI Surgical History: No Pertinent History Genitourinary Surgical Hx: No Pertinent History Musculskeletal Surgical Hx: Orthopedic Surgery Male Surgical History: No Pertinent History Other Surgical History: finger Significant Family History: no pertinent family hx - Social History Smoking Status: Current every day smoker How long have you smoked: 25 Exposure to second hand smoke: Yes Alcohol: None Drug Use: none - Social Determinants of Health Will the patient participate in the screening: Declined to provide - Physical Exam Vital Signs: Vital Signs - 24 hr Temp Pulse Resp BP BP Pulse Ox 04/03/25 01:26 96 04/03/25 01:17 97.6 F 78 17 122/80 98 04/03/25 01:00 90 15 104/61 96 04/03/25 00:30 90 16 105/63 94 L 04/03/25 00:00 86 14 122/76 94 L 04/02/25 23:30 82 21 112/73 95 04/02/25 23:00 79 20 128/76 95 04/02/25 22:30 78 25 H 131/78 94 L 04/02/25 22:09 91 H 24 126/84 96 04/02/25 21:30 87 24 126/84 96 04/02/25 21:00 86 18 124/84 96 04/02/25 20:30 89 14 129/88 97 04/02/25 20:02 98.8 F 93 H 18 132/84 97 04/02/25 20:00 88 24 133/81 97 General Appearance: no apparent distress, alert Neurologic Exam: alert, oriented x 3, cooperative, anti air warfare operations officer II-XII nml as tested, normal mood/affect, nml cerebellar function Eye Exam: PERRL/EOMI, eyes nml inspection, No scleral icterus, No pale conjunctivae, No photophobia Ears, Nose, Throat Exam: normal ENT inspection Neck Exam: normal inspection, non-tender, supple, full range of motion, No meningismus Respiratory Exam: normal breath sounds, lungs clear, airway intact, No chest tenderness, No respiratory distress Cardiovascular Exam: regular rate/rhythm, normal heart sounds, normal peripheral pulses, No murmur, No friction rub, No gallop, No edema Gastrointestinal/Abdomen Exam: soft, normal bowel sounds, tenderness, No distention Back Exam: normal range of motion Extremity Exam: normal inspection, normal range of motion, No pedal edema Skin Exam: normal color Results - Labs Lab/Micro Results: Lab Results-Last 24 Hours 04/02/25 04/02/25 04/02/25 Range/Units 20:00 20:00 20:00 WBC 10.8 H (4.23-9.07) x10^3/uL RBC 4.57 L (4.63-6.08) x10^6/uL Hgb 13.8 (13.7-17.5) g/dL Hct 40.7 (40.1-51.0) % MCV 89.1 (79.0-92.2) fL MCH 30.2 (25.7-32.2) pg MCHC 33.9 (32.3-36.5) g/dL RDW 14.0 (11.6-14.4) % Plt Count 244 (163-337) x10^3/uL MPV 9.7 (9.4-12.4) fL Gran % 69.0 H (34.0-67.9) % Immature Gran % (Auto) 0.2 (0.001-0.429) % Nucleat RBC Rel Count 0.0 (0.00-0.2) % Eos # (Auto) 0.11 (0.04-0.54) x10^3/uL Immature Gran # (Auto) 0.02 (0.001-0.031) x10^3u/L Absolute Lymphs (auto) 2.46 (1.32-3.57) x10^3/uL Absolute Monos (auto) 0.70 (0.30-0.82) x10^3/uL Absolute Nucleated RBC 0.00 (0.00-0.012) x10^3u/L Lymphocytes % 22.8 (21.8-53.1) % Monocytes % 6.5 (5.3-12.2) % Eosinophils % 1.0 (0.8-7.0) % Basophils % 0.5 (0.2-1.2) % Absolute Granulocytes 7.44 H (1.78-5.38) x10^3/uL Basophils # 0.05 (0.01-0.08) x10^3/uL D-Dimer (0.0-0.50) mg/L Sodium 137 (135-145) mmol/L Potassium 4.3 (3.5-5.1) mmol/L Chloride 102 (98-107) mmol/L Carbon Dioxide 24 (22-30) mmol/L Anion Gap 15.1 H (5-15) MEQ/L BUN 18 (9-20) mg/dL Creatinine 1.17 (0.66-1.25) mg/dL Estimated GFR 75.0 ML/MIN Glucose 123 H (74-106) mg/dL Calcium 9.3 (8.4-10.2) mg/dL Total Bilirubin 0.60 (0.2-1.3) mg/dL AST 23 (17-59) U/L ALT 19 (0-50) U/L Alkaline Phosphatase 156 H (38-126) U/L Troponin I < 0.012 (0.000-0.033) ng/mL NT-Pro-B Natriuret Pep 216 (<300) pg/mL Serum Total Protein 7.1 (6.3-8.2) g/dL Albumin 4.3 (3.5-5.0) g/dL 04/02/25 04/02/25 Range/Units 20:00 22:00 WBC (4.23-9.07) x10^3/uL RBC (4.63-6.08) x10^6/uL Hgb (13.7-17.5) g/dL Hct (40.1-51.0) % MCV (79.0-92.2) fL MCH (25.7-32.2) pg MCHC (32.3-36.5) g/dL RDW (11.6-14.4) % Plt Count (163-337) x10^3/uL MPV (9.4-12.4) fL Gran % (34.0-67.9) % Immature Gran % (Auto) (0.001-0.429) % Nucleat RBC Rel Count (0.00-0.2) % Eos # (Auto) (0.04-0.54) x10^3/uL Immature Gran # (Auto) (0.001-0.031) x10^3u/L Absolute Lymphs (auto) (1.32-3.57) x10^3/uL Absolute Monos (auto) (0.30-0.82) x10^3/uL Absolute Nucleated RBC (0.00-0.012) x10^3u/L Lymphocytes % (21.8-53.1) % Monocytes % (5.3-12.2) % Eosinophils % (0.8-7.0) % Basophils % (0.2-1.2) % Absolute Granulocytes (1.78-5.38) x10^3/uL Basophils # (0.01-0.08) x10^3/uL D-Dimer 1.08 H* (0.0-0.50) mg/L Sodium (135-145) mmol/L Potassium (3.5-5.1) mmol/L Chloride (98-107) mmol/L Carbon Dioxide (22-30) mmol/L Anion Gap (5-15) MEQ/L BUN (9-20) mg/dL Creatinine (0.66-1.25) mg/dL Estimated GFR ML/MIN Glucose (74-106) mg/dL Calcium (8.4-10.2) mg/dL Total Bilirubin (0.2-1.3) mg/dL AST (17-59) U/L ALT (0-50) U/L Alkaline Phosphatase (38-126) U/L Troponin I < 0.012 (0.000-0.033) ng/mL NT-Pro-B Natriuret Pep (<300) pg/mL Serum Total Protein (6.3-8.2) g/dL Albumin (3.5-5.0) g/dL - Radiology Impressions Radiology Exams & Impressions: Radiology Procedures Category Date Time Status CHEST 1 VIEW (PORTABLE) Stat Exams 04/02/25 20:46 Taken CHEST WITH CONTRAST [CT] Stat Exams 04/02/25 21:27 Taken ECHO W/2D AND DOPPLER [US] Routine Exams 04/03/25 01:23 Ordered - Other Procedures and Tests Respiratory Therapy 04/03/25 01:21 EKG REPEAT IN AM Assessment/Plan (1) Pericardial effusion Current Visit: Yes Status: Acute Assessment & Plan: Incidental finding on CT scan. Will obtain limited ECHO to rule out tamponade physiology. Code(s): I31.39 - OTHER PERICARDIAL EFFUSION (NONINFLAMMATORY) (2) Back pain Current Visit: Yes Status: Acute Assessment & Plan: Will need to review CTA chest read to determine if thoracic and cervical spine were visualized. If not, may need dedicated spinal CT imaging. Code(s): M54.9 - DORSALGIA, UNSPECIFIED (3) Chest pain Current Visit: Yes Status: Acute Assessment & Plan: Denied by patient. Will continue to monitor serial troponins on telemetry. Continue cardiac regimen. Patient states that he is on Plavix, Brilinta and ASA. May need to be confirmed with his concrete analyst tomorrow. Code(s): R07.9 - CHEST PAIN, UNSPECIFIED (4) Essential hypertension Current Visit: Yes Status: Acute Assessment & Plan: Monitor BP. Code(s): I10 - ESSENTIAL (PRIMARY) HYPERTENSION Telemedicine Encounter - Telemedicine Encounter Telemedicine Encounter: "The entirety of this encounter was performed via Telemedicine" This visit was performed using real-time audio and video connection between my location and thepatients locationwith the assistance of a surrogateat the patients location. Written or verbal consent was obtained from the patient/guardian to perform this visit using[employer]medicine technology. Any patient questions regarding the telemedicine interaction were answered. Please note that this admission required 46 minutes to complete.
[2025-04-03 03:49] LABS: BASOPHIL % 0.5 % (0.2-1.2); Basophil (Absolute #) 0.04 x10^3/uL (0.01-0.08); Eosinophil (Absolute #) 0.09 x10^3/uL (0.04-0.54); Hematocrit 37.4 % (40.1-51.0); Hemoglobin 12.8 g/dL (13.7-17.5); IMMATURE GRAN # 0.04 x10^3u/L (0.001-0.031); IMMATURE GRAN % 0.5 % (0.001-0.429); Lymphocyte (Absolute #) 2.02 x10^3/uL (1.32-3.57); Mean Corpuscular Hemoglobin 30.0 pg (25.7-32.2); Mean Corpuscular Hgb Concent. 34.2 g/dL (32.3-36.5); Monocyte (Absolute #) 0.72 x10^3/uL (0.30-0.82); NUCLEATED RBC # 0.00 x10^3u/L (0.00-0.012); NUCLEATED RBC % 0.0 % (0.00-0.2); Platelet Count 246 x10^3/uL (163-337); Red Blood Count 4.26 x10^6/uL (4.63-6.08); White Blood Count 8.4 x10^3/uL (4.23-9.07)
[2025-04-03 03:52] LABS: Calcium 9.2 mg/dL (8.4-10.2); Carbon Dioxide 31.0 mmol/L (22-30); Creatinine 1 1.18 mg/dL (0.66-1.25); EST GLOMERULAR FILTRATION RATE 74.2 ML/MIN; Glucose 134.0 mg/dL (74-106); Potassium 4.0 mmol/L (3.5-5.1)
[2025-04-03 07:57] VITALS: BP 100/59; PULSE 96; RESP 20; TEMP 98.2; O2SAT 92
--- NOTE | 2025-04-03 08:38 | XRAY ---
Indication: Pain. Elevated D-dimer. Multiple contiguous axial images obtained through the chest using 100 cc Isovue 370 contrast and PE protocol. Comparison: None Adequate opacification pulmonary arteries to include lobar and segmental branches. No pulmonary embolus. Heart is borderline enlarged with small pericardial effusion and CABG surgery. Aorta is minimally arteriosclerotic without aneurysm/dissection. Bowman subcarinal calcified nodes. No pathologic mediastinal/hilar lymphadenopathy. Lungs demonstrates mild bibasilar subsegmental atelectasis/scarring and small inferior right upper lobe calcified granuloma. No suspicious pulmonary mass/nodule, infiltrate, or effusion. Bony thorax intact with minimal/mild degenerative changes throughout spine, multilevel thoracic Schmorl nodes, and sternotomy wires. Limited upper abdomen including adrenal glands are unremarkable. Impression: 1. Negative pulmonary embolus. No acute cardiopulmonary abnormalities. 2. Borderline cardiomegaly with pericardial effusion. Echocardiogram may yield further information. 3. Chronic findings including atelectasis/scarring, chronic bony findings, and old granulomatous disease.
--- NOTE | 2025-04-03 08:40 | XRAY ---
Indication: Pain. Comparison: May 05, 2017 Portable chest less inflated and clear again with incidental right midlung calcified granuloma. Heart now borderline enlarged with interval CABG and incidental chunky mediastinal calcified node. Bony thorax intact . No acute findings.
[2025-04-03] MEDS: PLAVIX Tablet PO SCH (09:33)
[2025-04-03] MEDS: Pepcid 20 MG PO SCH (09:33)
[2025-04-03] MEDS ORDERED: ECOTRIN 81 MG PO SCH (10:00)
[2025-04-03] MEDS ORDERED: BRILINTA PO SCH (10:00)
--- NOTE | 2025-04-03 11:54 | XRAY ---
Indication: Pain. Comparison: None 4 view cervical spine demonstrates lordotic straightening, positional versus paraspinal spasm. Minimal/mild C4-C7 degenerative disc space narrowing with endplate spurring. No other bony, articular, or soft tissue abnormalities. Thoracic spine reported separately.
--- NOTE | 2025-04-03 11:55 | PCM.DS ---
Discharge Summary Date of Admission: 04/03/25 01:06 Date of Discharge: 04/03/25 Admitting Physician: TIGIST GUNN MD Primary Care Provider: POLA POLLARD DAPHNE Allergies Allergies hydrocodone Allergy (Verified 08/03/24 19:20) Swelling pt took one on 07/31/23 and did fine cephalexin [From Keflex] Adverse Reaction (Verified 08/03/24 19:20) Nausea and Vomiting doxycycline Adverse Reaction (Verified 04/02/25 20:11) Muscle Aches Hospital Summary - Hospital Course Hospital Course: Mr. Liu is a 50-year-old male with a history of myocardial infarction, coronary artery bypass grafting (CABG) x4 in October, hypertension, and hyperlipidemia who presented to the emergency department with one week of mid-back pain. He is adamant that he has not had any chest pain, despite ED documentation suggesting chest pain radiating to the back. He denies nausea, vomiting, diaphoresis, or fever. He reports a 30-pound weight loss since his CABG, which he attributes to a lack of appetite. He follows with customer professional Dr. Mcginnis, who confirmed that his outpatient labs were normal and no follow-up was needed at this time. The patient had been taking aspirin and Brilinta in addition to Plavix, but after speaking with his customer professional, it was clarified that he should only be taking Plavix; aspirin and Brilinta were discontinued. In the ED, serial troponins were negative, D-dimer was elevated at 1.08, and a CTA of the chest ruled out pulmonary embolism. Chest X-ray was unremarkable. However, CT chest showed borderline cardiomegaly with a small pericardial effusion. Despite this, the patient has no signs or symptoms of cardiac tamponade, including no hypotension, no jugular venous distention, no muffled heart sounds.. An echocardiogram is pending for further evaluation. The patient is currently sitting up in bed and eating and drinking well. He describes his pain as sharp and stabbing, radiating from the front of his chest to his back, and is concerned about a spinal issue. Thoracic and cervical spine X-rays are pending. He is a daily smoker (half a pack per day) and is refusing nicotine replacement therapy. The patient is interested in discharging today if no concerning findings arise and will follow up with cardiology as an outpatient for his echocardiogram results. - Vitals & Intake/Output Vital Signs: Vital Signs Temperature 98.2 F 04/03/25 07:56 Pulse Rate 96 H 04/03/25 07:56 Respiratory Rate 20 04/03/25 07:56 Blood Pressure 100/59 04/03/25 07:56 O2 Sat by Pulse Oximetry 92 L 04/03/25 07:56 Intake & Output: Intake & Output 03/31/25 04/01/25 04/02/25 04/03/25 11:59 11:59 11:59 11:59 Intake Total 240 Balance 240 Weight 86.9 kg - Lab Result Diagrams: 04/03/25 03:15 04/03/25 03:15 Lab Results-Last 24 Hrs: Lab Results-Last 24 Hours 04/02/25 04/02/25 04/02/25 Range/Units 20:00 20:00 20:00 WBC 10.8 H (4.23-9.07) x10^3/uL RBC 4.57 L (4.63-6.08) x10^6/uL Hgb 13.8 (13.7-17.5) g/dL Hct 40.7 (40.1-51.0) % MCV 89.1 (79.0-92.2) fL MCH 30.2 (25.7-32.2) pg MCHC 33.9 (32.3-36.5) g/dL RDW 14.0 (11.6-14.4) % Plt Count 244 (163-337) x10^3/uL MPV 9.7 (9.4-12.4) fL Gran % 69.0 H (34.0-67.9) % Immature Gran % (Auto) 0.2 (0.001-0.429) % Nucleat RBC Rel Count 0.0 (0.00-0.2) % Eos # (Auto) 0.11 (0.04-0.54) x10^3/uL Immature Gran # (Auto) 0.02 (0.001-0.031) x10^3u/L Absolute Lymphs (auto) 2.46 (1.32-3.57) x10^3/uL Absolute Monos (auto) 0.70 (0.30-0.82) x10^3/uL Absolute Nucleated RBC 0.00 (0.00-0.012) x10^3u/L Lymphocytes % 22.8 (21.8-53.1) % Monocytes % 6.5 (5.3-12.2) % Eosinophils % 1.0 (0.8-7.0) % Basophils % 0.5 (0.2-1.2) % Absolute Granulocytes 7.44 H (1.78-5.38) x10^3/uL Basophils # 0.05 (0.01-0.08) x10^3/uL D-Dimer (0.0-0.50) mg/L Sodium 137 (135-145) mmol/L Potassium 4.3 (3.5-5.1) mmol/L Chloride 102 (98-107) mmol/L Carbon Dioxide 24 (22-30) mmol/L Anion Gap 15.1 H (5-15) MEQ/L BUN 18 (9-20) mg/dL Creatinine 1.17 (0.66-1.25) mg/dL Estimated GFR 75.0 ML/MIN Glucose 123 H (74-106) mg/dL Calcium 9.3 (8.4-10.2) mg/dL Total Bilirubin 0.60 (0.2-1.3) mg/dL AST 23 (17-59) U/L ALT 19 (0-50) U/L Alkaline Phosphatase 156 H (38-126) U/L Troponin I < 0.012 (0.000-0.033) ng/mL NT-Pro-B Natriuret Pep 216 (<300) pg/mL Serum Total Protein 7.1 (6.3-8.2) g/dL Albumin 4.3 (3.5-5.0) g/dL 04/02/25 04/02/25 04/03/25 Range/Units 20:00 22:00 03:15 WBC (4.23-9.07) x10^3/uL RBC (4.63-6.08) x10^6/uL Hgb (13.7-17.5) g/dL Hct (40.1-51.0) % MCV (79.0-92.2) fL MCH (25.7-32.2) pg MCHC (32.3-36.5) g/dL RDW (11.6-14.4) % Plt Count (163-337) x10^3/uL MPV (9.4-12.4) fL Gran % (34.0-67.9) % Immature Gran % (Auto) (0.001-0.429) % Nucleat RBC Rel Count (0.00-0.2) % Eos # (Auto) (0.04-0.54) x10^3/uL Immature Gran # (Auto) (0.001-0.031) x10^3u/L Absolute Lymphs (auto) (1.32-3.57) x10^3/uL Absolute Monos (auto) (0.30-0.82) x10^3/uL Absolute Nucleated RBC (0.00-0.012) x10^3u/L Lymphocytes % (21.8-53.1) % Monocytes % (5.3-12.2) % Eosinophils % (0.8-7.0) % Basophils % (0.2-1.2) % Absolute Granulocytes (1.78-5.38) x10^3/uL Basophils # (0.01-0.08) x10^3/uL D-Dimer 1.08 H* (0.0-0.50) mg/L Sodium (135-145) mmol/L Potassium (3.5-5.1) mmol/L Chloride (98-107) mmol/L Carbon Dioxide (22-30) mmol/L Anion Gap (5-15) MEQ/L BUN (9-20) mg/dL Creatinine (0.66-1.25) mg/dL Estimated GFR ML/MIN Glucose (74-106) mg/dL Calcium (8.4-10.2) mg/dL Total Bilirubin (0.2-1.3) mg/dL AST (17-59) U/L ALT (0-50) U/L Alkaline Phosphatase (38-126) U/L Troponin I < 0.012 < 0.012 (0.000-0.033) ng/mL NT-Pro-B Natriuret Pep (<300) pg/mL Serum Total Protein (6.3-8.2) g/dL Albumin (3.5-5.0) g/dL 07/29/25 07/29/25 Range/Units 03:15 03:15 WBC 8.4 (4.23-9.07) x10^3/uL RBC 4.26 L (4.63-6.08) x10^6/uL Hgb 12.8 L (13.7-17.5) g/dL Hct 37.4 L (40.1-51.0) % MCV 87.8 (79.0-92.2) fL MCH 30.0 (25.7-32.2) pg MCHC 34.2 (32.3-36.5) g/dL RDW 14.1 (11.6-14.4) % Plt Count 246 (163-337) x10^3/uL MPV 10.0 (9.4-12.4) fL Gran % 65.3 (34.0-67.9) % Immature Gran % (Auto) 0.5 H (0.001-0.429) % Nucleat RBC Rel Count 0.0 (0.00-0.2) % Eos # (Auto) 0.09 (0.04-0.54) x10^3/uL Immature Gran # (Auto) 0.04 H (0.001-0.031) x10^3u/L Absolute Lymphs (auto) 2.02 (1.32-3.57) x10^3/uL Absolute Monos (auto) 0.72 (0.30-0.82) x10^3/uL Absolute Nucleated RBC 0.00 (0.00-0.012) x10^3u/L Lymphocytes % 24.0 (21.8-53.1) % Monocytes % 8.6 (5.3-12.2) % Eosinophils % 1.1 (0.8-7.0) % Basophils % 0.5 (0.2-1.2) % Absolute Granulocytes 5.49 H (1.78-5.38) x10^3/uL Basophils # 0.04 (0.01-0.08) x10^3/uL D-Dimer (0.0-0.50) mg/L Sodium 138 (135-145) mmol/L Potassium 4.0 (3.5-5.1) mmol/L Chloride 102 (98-107) mmol/L Carbon Dioxide 31 H (22-30) mmol/L Anion Gap 9.3 (5-15) MEQ/L BUN 15 (9-20) mg/dL Creatinine 1.18 (0.66-1.25) mg/dL Estimated GFR 74.2 ML/MIN Glucose 134 H (74-106) mg/dL Calcium 9.2 (8.4-10.2) mg/dL Total Bilirubin (0.2-1.3) mg/dL AST (17-59) U/L ALT (0-50) U/L Alkaline Phosphatase (38-126) U/L Troponin I (0.000-0.033) ng/mL NT-Pro-B Natriuret Pep (<300) pg/mL Serum Total Protein (6.3-8.2) g/dL Albumin (3.5-5.0) g/dL - Radiology Exams Ordered Rad Exams-Entire Visit: Radiology Procedures Category Date Time Status CERVICAL SPINE (2 OR 3 VIEW) Routine Exams 04/03/25 11:01 Taken CHEST 1 VIEW (PORTABLE) Stat Exams 04/02/25 20:46 Completed CHEST WITH CONTRAST [CT] Stat Exams 04/02/25 21:27 Completed THORACIC SPINE (AP,LAT,SWIMM) Routine Exams 04/03/25 11:01 Taken - Procedures and Test Procedures and Tests throughout Hospitalization: Therapy Orders & Screens 04/03/25 01:21 EKG REPEAT IN AM Comment: Diagnosis: ACS, Chest pain Discharge Exam General Appearance: no apparent distress, alert, obese Neurologic Exam: alert, oriented x 3, cooperative, normal mood/affect, nml cerebellar function, sensation nml, No motor deficits Eye Exam: PERRL, EOMI, eyes nml inspection Ears, Nose, Throat Exam: normal ENT inspection, pharynx normal, moist mucous membranes Neck Exam: normal inspection, non-tender, supple, full range of motion Respiratory Exam: normal breath sounds, lungs clear, No respiratory distress Cardiovascular Exam: regular rate/rhythm, normal heart sounds Gastrointestinal/Abdomen Exam: soft, No tenderness, No mass Male Genitalia Exam: deferred Rectal Exam: deferred Back Exam: normal inspection, normal range of motion, other, No CVA tenderness, No vertebral tenderness Extremity Exam: normal inspection, normal range of motion Skin Exam: normal color, warm, dry Final Diagnosis/Problem List - Final Discharge Diagnosis/Problem (1) Chest pain Current Visit: Yes Status: Acute Assessment & Plan: - CXR: Portable chest less inflated and clear again with incidental right midlung calcified granuloma. Heart now borderline enlarged with interval CABG and incidental chunky mediastinal calcified node. Bony thorax intact . No acute findings. - Chest CT: Impression: 1. Negative pulmonary embolus. No acute cardiopulmonary abnormalities. 2. Borderline cardiomegaly with pericardial effusion. Echocardiogram may yield further information. 3. Chronic findings including atelectasis/scarring, chronic bony findings, and old granulomatous disease. - Pt denies CP - EKG - Tele - Trops x3 negative - CBC, CMP reviewed - Echo pending Code(s): R07.9 - CHEST PAIN, UNSPECIFIED (2) Back pain Current Visit: Yes Status: Acute Assessment & Plan: - Thoracic spine XR: AP/lateral thoracic spine demonstrates 12 rib-bearing segments with minimal levoscoliosis centered at T7, minimal/mild multilevel degenerative endplate spurring, small mediastinal calcified nodes, and CABG surgery. No other bony, articular, or soft tissue abnormalities. - Cervical spine XR: 4 view cervical spine demonstrates lordotic straightening, positional versus paraspinal spasm. Minimal/mild C4-C7 degenerative disc space narrowing with endplate spurring. No other bony, articular, or soft tissue abnormalities. - Can use OTC meds and ice or heat for paraspinal spasm - Discussed findings with pt and he refuses OP rehab Code(s): M54.9 - DORSALGIA, UNSPECIFIED (3) D-dimer, elevated Current Visit: Yes Status: Acute Assessment & Plan: - D-dimer 1.08 - CT chest negative for PE Code(s): R79.89 - OTHER SPECIFIED ABNORMAL FINDINGS OF BLOOD CHEMISTRY (4) Smoker Current Visit: Yes Status: Chronic Assessment & Plan: - Advised smoking cessation - Declined nicotine patch - Provided information for 1800 quit now Code(s): F17.200 - NICOTINE DEPENDENCE, UNSPECIFIED, UNCOMPLICATED (5) Obese Current Visit: Yes Status: Chronic Assessment & Plan: - Advised diet and exercise per cardiology recs Code(s): E66.9 - OBESITY, UNSPECIFIED (6) Essential hypertension Current Visit: Yes Status: Acute Code(s): I10 - ESSENTIAL (PRIMARY) HYPERTENSION (7) Pericardial effusion Current Visit: Yes Status: Acute Code(s): I31.39 - OTHER PERICARDIAL EFFUSION (NONINFLAMMATORY) (8) CAD (coronary artery disease) Current Visit: Yes Status: Chronic Assessment & Plan: - Per cardiology Dr. Fink office pt to only be on Plavix - Brilinta and ASA taken off med list - CABG with Dr. Thomas Code(s): I25.10 - ATHSCL HEART DISEASE OF [place] CORONARY ARTERY W/O ANG PCTRS - Discharge Discharge Date: 04/03/25 Disposition: Home, Self-Care Condition: Stable Prescriptions: Continue Famotidine [Pepcid] 20 mg PO BID Atorvastatin Calcium 80 mg PO HS Clopidogrel Bisulfate [Clopidogrel] 75 mg PO DAILY Discontinued Aspirin [Adult Low Dose Aspirin EC] 325 mg PO DAILY Ticagrelor [Brilinta] 90 mg PO BID Follow up with: POLA SERNA NP [Primary Care Provider, [facility]]
[2025-04-03] MEDS ORDERED: ZOCOR 20MG PO SCH (22:00)
[2025-04-03] MEDS ORDERED: NON-FORMULARY ITEM (Atorvastatin Calcium [Atorvastatin Calcium] 80 MG Tablet) PO SCH (22:00)
== END 2025-04-03 12:50 | disposition home or self-care (01) ==
LOC: ED 19:50 → MED SURG 04-03 01:06
PROVIDERS: ADMIT Internal Medicine; ATTEND Internal Medicine
DX: R07.9 Chest pain, unspecified (principal); M54.9 Dorsalgia, unspecified; R79.89 Other specified abnormal findings of blood chemistry; F17.200 Nicotine dependence, unspecified, uncomplicated; E66.9 Obesity, unspecified; I10 Essential (primary) hypertension; I25.10 Atherosclerotic heart disease of native coronary artery without angina pectoris; I31.39 Other pericardial effusion (noninflammatory); E78.5 Hyperlipidemia, unspecified; Z95.0 Presence of cardiac pacemaker; Z79.899 Other long term (current) drug therapy; Z79.01 Long term (current) use of anticoagulants
CPT/HCPCS: 36415; 71045; 71260; 72040; 72072; 80048; 80053; 83880; 84484; 85025; 85379; 93005; 93041; 93268; 93308; 94760; 99285; G0378; Q3014